=== PATIENT | male | born 1940 | race Caucasian/White ===

== ENCOUNTER 2016-05-28 15:35 | Emergency (ER) | payer OTHER ==
[~2016-05-28] VITALS: Ht 172.7 cm; Wt 77.0 kg
[2016-05-28 15:40] VITALS: Ht 172.7 cm; Wt 77.0 kg
[2016-05-28] MEDS ORDERED: LEVO100T82 PO (15:58)
[2016-05-28] MEDS ORDERED: NAPR-688 PO (15:58)
[2016-05-28] MEDS ORDERED: MEVA40 PO (15:58)
[2016-05-28 16:08] LABS: BASOPHILS % 0.5 % (0.0-2.0); EOSINOPHILS % 0.2 % (0.0-7.0); HEMATOCRIT 44.4 % (42.0-52.0); LYMPHOCYTES # 1.7 10^3/ul (0.8-2.9); LYMPHOCYTES % 16.9 % (15.0-51.0); MEAN CORPUSCULAR HEMOGLOBIN 32.1 pg (29.0-33.0); MEAN CORPUSCULAR HGB CONC 33.8 g/dl (32.0-37.0); MEAN CORPUSCULAR VOLUME 94.9 fl (82.0-101.0); MEAN PLATELET VOLUME 8.1 fl (7.4-10.4); MONOCYTE # 0.7 10^3/ul (0.3-0.9); MONOCYTES % 7.4 % (0.0-11.0); NEUTROPHIL # 7.5 10^3/ul (1.6-7.5); PLATELET COUNT 232 10^3/UL (140-440); RED BLOOD COUNT 4.67 10^6/ul (4.70-6.10); RED CELL DISTRIBUTION WIDTH 12.7 % (11.5-14.5)
[2016-05-28 16:10] LABS: CONDITION 1
[2016-05-28 16:19] LABS: CHLORIDE 104 mmol/L (97-110); POTASSIUM 4.4 mmol/L (3.5-5.1); SODIUM 142 mmol/L (135-144)
--- NOTE | 2016-05-28 16:19 | RADRPT ---
PROCEDURE: CT Brain without. CLINICAL INDICATION: Stroke. Right-sided weakness. TECHNIQUE: A CT of the brain was performed on multidetector high-resolution CT scanner utilizing a xial sections from the skull base through the vertex without contrast. The scan was reviewed in sof t tissue brain and high frequency resolution bone algorithm windows. Images were reviewed on a high -resolution PACS workstation. One or more the following does reduction techniques were utilized: Aut omated exposure control, adjustment of the mA/ or kV according to patient's size, or use of iterativ e reconstruction technique. The exam CTDI = 54.84 mGy and the DLP = 720.23 mGy-cm. COMPARISON: None available. FINDINGS: The ventricles and sulci are mildly to moderately prominent indicative of volume loss. There is no i ntracranial hemorrhage, mass effect or midline shift. No abnormal intra-axial or extra-axial fluid collections are seen. The thomas/white matter differentiation is preserved. There are moderate scattered foci of hypoattenuation in the periventricular, deep, and subcortical w chidi matter, which are nonspecific in etiology but likely reflect chronic small vessel ischemic segundo ges. Small old infarct is noted in the right lentiform nucleus. There are mild intracranial vascula r calcifications consistent with atherosclerosis. The visualized paranasal sinuses demonstrate focal opacification of posterior left ethmoid air cells. The mastoid air cells are essentially clear. Th ere is thinning of right lens indicative of prior lens replacement. IMPRESSION: 1. No acute intracranial hemorrhage, transcortical infarction or mass effect. Please note MRI is mo re sensitive for detection of acute ischemia and can be obtained as clinically warranted. 2. Mild intracranial atherosclerosis and moderate chronic small vessel ischemic changes, superimpos ed acute infarct cannot be excluded. 3. Small old infarct is noted in the right lentiform nucleus. 4. Mild to moderate generalized cerebral volume loss. Critical result: A call report was made and above findings were discussed and acknowledged by Dr. Jay melgar on 05/28/2016 at 4:12 PM. RPTAT: HH .Jose Jacobs MD, MD Date Time Electronically viewed and signed by .Jose Jacobs MD, MD on 05/28/2016 16:18 .N/
[2016-05-28 16:21] LABS: INR 0.95; PARTIAL THROMBOPLASTIN TIME 24.5 Sec (25.0-35.0); PROTIME 12.7 Sec (12.2-14.2)
[2016-05-28 16:22] LABS: ANION GAP 18 (8-16); BLOOD UREA NITROGEN 27 mg/dl (7-20); CARBON DIOXIDE 24 mmol/L (21-31); CREATININE 0.94 mg/dl (0.61-1.24); GLUCOSE 103 mg/dl (70-220)
[2016-05-28 16:23] LABS: CALCIUM 9.3 mg/dl (8.4-10.2)
[2016-05-28] MEDS ORDERED: SOD CHLORIDE 0.9% 50 ML IV ONE (16:30)
[2016-05-28] MEDS ORDERED: ALTEPLASE 100 MG INJ IV* ONE (16:30)
[2016-05-28] MEDS ORDERED: ALTEPLASE (tPA) 1 MG/ML BOLUS SYG IV* ONE (16:30)
[2016-05-28 16:36] LABS: TROPONIN-I < 0.010 ng/ml (0.00-0.12)
--- NOTE | 2016-05-28 16:39 | RADRPT ---
PROCEDURE: XR Chest 1 View. CLINICAL INDICATION: Abnormal breath sounds, code stroke. TECHNIQUE: AP view of the chest were obtained. COMPARISON: None. FINDINGS: The heart size is within normal limits. Calcified atherosclerosis is noted in the aorta. The lungs are hypoinflated. Elevation right hemidiaphragm is identified. No consolidations are identified. N o pneumothorax is seen. Osseous structures are intact. IMPRESSION: Calcified atherosclerosis in the aorta. Hypoinflated lungs with mild elevation right hemidiaphragm. Clear lungs. RPTAT: AA .Braden Aaron MD, MD Date Time Electronically viewed and signed by .Braden Aaron MD, on 05/28/2016 16:39 .P/
[2016-05-28] MEDS ORDERED: SOD CHLORIDE 0.9% 100 ML ONE (16:55)
[2016-05-28] MEDS ORDERED: IOHEXOL 100 ML ONE (16:55)
[2016-05-28] MEDS ORDERED: IOHEXOL 350MG/ML 50 ML BTL ONE (16:58)
--- NOTE | 2016-05-28 17:00 | STROKE ---
Date/Time of Note Date/Time of Note DATE: 05/28/16 TIME: 16:51 Patient Information General Patient location: emergency Arrival Date Onset Date: May 28, 2016 Onset Time: 14:45 Age 76 Gender male Weight 77 kg Vital Signs Vital Signs Vital Signs Date Time Temp Pulse Resp B/P Pulse Ox O2 Delivery O2 Flow Rate FiO2 05/28/16 15:45 Nasal Cannula 2 05/28/16 15:40 98.4 75 20 134/73 98 Patient History Current Medications Allergies: Coded Allergies: No Known Allergy (Unverified , 05/28/16) Labs Hematology Labs Hematology Test 05/28/16 16:00 Basophils # 0.010^3/ul (0.0-0.1) Basophils % 0.5% (0.0-2.0) Eosinophils # 0.010^3/ul (0.0-0.5) Eosinophils % 0.2% (0.0-7.0) Hematocrit 44.4% (42.0-52.0) Hemoglobin 15.0g/dl (14.0-18.0) Lymphocytes # 1.710^3/ul (0.8-2.9) Lymphocytes % 16.9% (15.0-51.0) Mean Corpuscular Hemoglobin 32.1pg (29.0-33.0) Mean Corpuscular Hemoglobin Concent 33.8g/dl (32.0-37.0) Mean Corpuscular Volume 94.9fl (82.0-101.0) Mean Platelet Volume 8.1fl (7.4-10.4) Monocytes # 0.710^3/ul (0.3-0.9) Monocytes % 7.4% (0.0-11.0) Neutrophils # 7.510^3/ul (1.6-7.5) Neutrophils % 75.0% (39.0-77.0) Nucleated Red Blood Cells # 0.010^3/ul (0.0-0.0) Nucleated Red Blood Cells % 0.0/100WBC (0.0-0.0) Platelet Count 91531^3/UL (140-440) Red Blood Count 4.6710^6/ul (4.70-6.10) Red Cell Distribution Width 12.7% (11.5-14.5) White Blood Count 10.010^3/ul (4.8-10.8) Chemistry Labs Chemistry Test 05/28/16 16:00 Anion Gap 18 (8-16) Blood Urea Nitrogen 27mg/dl (7-20) Calcium Level 9.3mg/dl (8.4-10.2) Carbon Dioxide Level 24mmol/L (21-31) Chloride Level 104mmol/L (97-110) Creatinine 0.94mg/dl (0.61-1.24) Glucose Level 103mg/dl (70-220) Hemoglobin A1c 5.3% (0-5.9) Potassium Level 4.4mmol/L (3.5-5.1) Sodium Level 142mmol/L (135-144) Troponin I < 0.010ng/ml (0.00-0.12) Coagulation Labs: Coagulation Test 05/28/16 16:00 Activated Partial Thromboplast Time 24.5Sec (25.0-35.0) INR International Normalized Ratio 0.95 Prothrombin Time 12.7Sec (12.2-14.2) Prothrombin Time Ratio 1.0 History & Physical Patient History Notes Pt Hx Reviewed History of Present Illness 76yo M presents with sudden onset confusion since 2:45pm. Patient was apparently feeling sick while at a movie theater, then drove home but felt confused. When he arrived home, his found patient to be very confused. Review of Systems All Other Systems: Reviewed and Negative (patient unable to provide) NIH Stroke Scale NIH Stroke Scale 1A - Level of Conciousness: 0 - Alert keenly [id number] LOC Questions: 2 - Answers no [id number] - LOC Commands: 2 - Performs neither task2 - Best Gaze: 0 - Normal3 - Visual: 0 - No visual loss4 - Facial Palsy: 0 - No visual loss 5A - Motor Arm - Left: 2 - Some effort to [id number] - Motor Arm - Right: 2 - Some effort to [id number] - Motor Leg - Left: 2 - Some effort to [id number] - Motor Leg - Right: 2 - Some effort to gravity7 - Limb Ataxia: 0 - Absent8 - Sensory: 0 - Normal9 - Best Language: 3 - Mute or global aphasiaDysarthria: 2 - [id number] - Extinction and inattentio: 0 - No abnormalityTotal Score: 17 Date/Time Recorded DATE: 05/28/16 TIME: 16:51 Submitted By Marcus Tejada t-PA Imaging Review Imaging Reviewed: Yes Date/Time Imaging Reviewed DATE: 05/28/16 TIME: 16:51 Imaging Findings No acute changes t-PA Administration Recommendation: Yes Weight 77 kg Recommedation submitted by Marcus Tejada Recommendations Impression Diagnosis acute ischemic stroke of the left middle cerebral artery Recommendation 76yo M presents with acute onset confusion. Neurological exam is notable for patient being mute, unable to answer questions, or follow commands. I believe patient is having an acute ischemic stroke of the left middle cerebral artery. I initially recommended IV TPA to be administered on an emergency basis. I later was able to speak to his and she agreed with my recommendation for IV TPA. I also recommend stat CTA of the head and neck to determine if the patient is a neurointerventional candidate. I recommend post-TPA orders be followed. Further workup is pending the results of these tests. Post t-PA Order recommendation: Document q15 min vitals Document q15 min neuro checks Document q15 min bleeding checks Refer to t-PA Order Sets Diagnostic Labs: Lipid Proile Hgb A1C CMP CBC w/Diff Coags Therapy: Physical Therapy Speech Therapy Occupational Therapy Misc. Recommendations: Bedside Swallow Evaluation Pnumatic Compression Devices Avoid [place] Catheter Stroke Education Smoking Education MARCUS TEJADA May 28, 2016 17:00
[2016-05-28] MEDS ORDERED: ONDANSETRON 4 MG INJ IV STA (17:20)
--- NOTE | 2016-05-28 17:32 | RADRPT ---
PROCEDURE: CT angiogram brain and neck CLINICAL INDICATION: Code stroke, right-sided weakness TECHNIQUE: CT angiogram of the brain, and neck was performed on a multidetector CT scanner. The nicole dy was reviewed on a [employer] PACS/3D workstation with 3D-MIP reformations. 100 cc Omnipaque 350 intravenous contrast were administered. One or more of the following dose reduction techniques were used: Automated exposure control, adjustment in mA and / or kV according to patient size, use of it erative reconstructive technique. CTDIvol = 25.7/22.4 mGy and DLP = 12.9/889.9 mGy-cm. COMPARISON: CT brain 05/28/2016 FINDINGS: CT ANGIOGRAM NECK: The origin of the great vessels arising off of the aortic arch are patent. The b ilateral common carotid arteries are patent. The bilateral carotid bulbs - bifurcations and interna l carotid arteries are patent. There is mild calcified plaque at the left carotid bulb. The bilate ral vertebral arteries are patent. Noted is tortuosity of the proximal left common carotid artery, distal left internal carotid artery, and vertebral arteries. No dissection is identified. CT ANGIOGRAM BRAIN: There is calcified plaque at the supraclinoid internal carotid artery without oc clusion or significant stenosis. The left internal carotid arteries, pain with minimal calcified pl aque at the cavernous segment. The bilateral middle cerebral arteries appear patent. The bilateral anterior cerebral arteries are patent. The bilateral posterior cerebral arteries are patent with p redominant origins. The bilateral vertebral arteries and basilar artery are diminutive but pa tent. The anterior communicating artery is visualized. No aneurysm or arteriovenous malformation i s identified. IMPRESSION: 1. No intracranial arterial occlusion or significant stenosis identified. 2. Patent cervical arteries. 3. Mild atherosclerotic disease, described above. Results called to Dr. DANIELS at 05:30 p.m., 05/28/2016. RPTAT: VV .Ken Carpenter MD, Date Time Electronically viewed and signed by .Ken Carpenter MD, on 05/28/2016 17:32 .O/
--- NOTE | 2016-05-28 17:40 | RADRPT ---
PROCEDURE: CT angiogram brain and neck CLINICAL INDICATION: Code stroke, right-sided weakness TECHNIQUE: CT angiogram of the brain, and neck was performed on a multidetector CT scanner. The stud y was reviewed on a [employer] PACS/3D workstation with 3D-MIP reformations. 100 cc Omnipaque 350 in travenous contrast were administered. One or more of the following dose reduction techniques were us ed: Automated exposure control, adjustment in mA and / or kV according to patient size, use of itera tive reconstructive technique. CTDIvol = 25.7/22.4 mGy and DLP = 12.9/889.9 mGy-cm. COMPARISON: CT brain 05/28/2016 FINDINGS: CT ANGIOGRAM NECK: The origin of the great vessels arising off of the aortic arch are patent. The bi lateral common carotid arteries are patent. The bilateral carotid bulbs - bifurcations and internal carotid arteries are patent. There is mild calcified plaque at the left carotid bulb. The bilateral vertebral arteries are patent. Noted is tortuosity of the proximal left common carotid artery, dista l left internal carotid artery, and vertebral arteries. No dissection is identified. CT ANGIOGRAM BRAIN: There is calcified plaque at the supraclinoid internal carotid artery without oc clusion or significant stenosis. The left internal carotid arteries, pain with minimal calcified rosario que at the cavernous segment. The bilateral middle cerebral arteries appear patent. The bilateral an terior cerebral arteries are patent. The bilateral posterior cerebral arteries are patent with predo minant origins. The bilateral vertebral arteries and basilar artery are diminutive but patent. The anterior communicating artery is visualized. No aneurysm or arteriovenous malformation is ident ified. IMPRESSION: 1. No intracranial arterial occlusion or significant stenosis identified. 2. Patent cervical arteries. 3. Mild atherosclerotic disease, described above. Results called to Dr. DANIELS at 05:30 p.m., 05/28/2016. RPTAT: VV .Ken Carpenter MD, Date Time Electronically viewed and signed by .Ken Carpenter MD, MD on 05/28/2016 17:40 .O/
--- NOTE | 2016-05-28 17:53 | ERA ---
ER Documentation Chief Complaint Date/Time DATE: 05/28/16 TIME: 17:45 Chief Complaint RIGHT SIDED FACIAL DROOP AND GENERALIZED WEAKNESS STARTED AT 1415 HPI This is a 76-year-old male who presents to the emergency room after being brought in by ambulance for altered mental status. According to EMS and prehospital history this patient was at a movie theater around 2:30 PM and stated he was feeling sick. The patient got into his car and was driving home and told his that he was confused and could not find the house. When he was eventually able to get home his called 911. According to EMS this patient had slurred speech, and was weak on the right side with a mild right- sided facial droop. When I evaluated this patient I was unable to obtain a history secondary to his clinical condition. The patient was completely a phasic, and was unable to follow commands thoroughly. A code stroke was called immediately as this patient was in the timeframe to receive TPA ROS All systems reviewed and are negative except as per history of present illness. Medications Home Meds Reported Medications Levothyroxine Sodium* (Levoxyl*) 100 Mcg Tablet, 100 MCG PO BEFORE BREAKFAST, # 30 TAB 05/28/16 Lovastatin (Lovastatin) 40 Mg Tablet, 40 MG PO HS, TAB 05/28/16 Naproxen* (Naproxen*) 500 Mg Tablet, 500 MG PO BID Y for PAIN AND/OR INFLAMMATION, TAB 05/28/16 Allergies Allergies: Coded Allergies: No Known Allergy (Unverified , 05/28/16) PMhx/Soc History of Surgery: No Anesthesia Reaction: No Hx Neurological Disorder: No Hx Respiratory Disorders: No Hx Cardiac Disorders: Yes (HIGH CHOLESTEROL) Hx Psychiatric Problems: No Hx Miscellaneous Medical Probl: Yes (HYPOTHYROIDISM) Hx Alcohol Use: Yes (2 GLASSES OF WINE A DAY) Hx Substance Use: No Hx Tobacco Use: No Smoking Status: Never smoker Physical Exam Vitals Vital Signs Date Time Temp Pulse Resp B/P Pulse Ox O2 Delivery O2 Flow Rate FiO2 05/28/16 17:30 91 20 151/73 100 05/28/16 17:15 91 20 113/91 99 05/28/16 17:00 99 20 148/73 99 05/28/16 16:50 86 20 145/73 99 05/28/16 16:35 86 20 135/64 99 05/28/16 16:33 83 20 136/62 99 05/28/16 15:45 Nasal Cannula 2 05/28/16 15:40 98.4 75 20 134/73 98 Physical Exam INITIAL VITAL SIGNS: Reviewed by me GENERAL: The patient is well developed and appropriate for usual state of health in no apparent distress HEENT: Pupils equal, round, and reactive to light. EOMI. There is no scleral icterus. NECK: Mild right sided facial droop, C-spine is soft and supple, there is no meningismus. There is no cervical lymphadenopathy. LUNGS: Clear to auscultation bilaterally. There are no rales, wheezes or rhonchi. HEART: Regular rate and rhythm, no murmurs, clicks, rubs or gallops. ABDOMEN: Soft, non-tender, non-distended. There are bowel sounds in all four quadrants. No rebound or guarding. EXTREMITIES: There is no peripheral cyanosis or edema. No focal swelling or erythema. NEUROLOGICAL: Patient is a phasic, left manager mechanical strength is 4 out of 5, right manager mechanical strength is 2 out of 5, unable to assess strength in the lower extremities as patient is noncompliant. Patient is unable to track my finger visually, has no grimace, SKIN: There is no apparent rash or petechiae. HEME/LYMPHATIC: There is no evidence of excessive bruising or lymphedema. PSYCHIATRIC: The patient does not appear anxious or depressed. Result Diagram: 05/28/16 1600 05/28/16 1600 Results 24 hrs Laboratory Tests Test 05/28/16 16:00 Activated Partial Thromboplast Time 24.5Sec Anion Gap 18 Basophils # 0.010^3/ul Basophils % 0.5% Blood Urea Nitrogen 27mg/dl Calcium Level 9.3mg/dl Carbon Dioxide Level 24mmol/L Chloride Level 104mmol/L Creatinine 0.94mg/dl Eosinophils # 0.010^3/ul Eosinophils % 0.2% Glucose Level 103mg/dl Hematocrit 44.4% Hemoglobin 15.0g/dl Hemoglobin A1c 5.3% INR International Normalized Ratio 0.95 Lymphocytes # 1.710^3/ul Lymphocytes % 16.9% Mean Corpuscular Hemoglobin 32.1pg Mean Corpuscular Hemoglobin Concent 33.8g/dl Mean Corpuscular Volume 94.9fl Mean Platelet Volume 8.1fl Monocytes # 0.710^3/ul Monocytes % 7.4% Neutrophils # 7.510^3/ul Neutrophils % 75.0% Nucleated Red Blood Cells # 0.010^3/ul Nucleated Red Blood Cells % 0.0/100WBC Platelet Count 33405^3/UL Potassium Level 4.4mmol/L Prothrombin Time 12.7Sec Prothrombin Time Ratio 1.0 Red Blood Count 4.6710^6/ul Red Cell Distribution Width 12.7% Sodium Level 142mmol/L Troponin I < 0.010ng/ml White Blood Count 10.010^3/ul Current Medications Medications (Trade) Dose Ordered Sig/Micaela Route PRN Reason Start Time Stop Time Status Last Admin Dose Admin Alteplase, Recombinant (Activase) 6.9 mg BOLUS OVER 1 MIN ONCE IV* 05/28/16 16:30 05/28/16 16:31 DC Alteplase, Recombinant 62.4 mg 62.4 mg ISCHEMIC STROKE ONCE IV* 05/28/16 16:30 05/28/16 16:31 DC Sodium Chloride (NS) 50 ml @ 0 mls/hr FLUSH AFTER TPA ONCE IV 05/28/16 16:30 05/28/16 16:31 DC IV Flush 10 ml 10 ml STK-MED ONCE .ROUTE 05/28/16 16:55 05/28/16 16:56 DC 05/28/16 17:15 Sodium Chloride 100 ml @ ud STK-MED ONCE .ROUTE 05/28/16 16:55 05/28/16 16:56 DC 05/28/16 17:15 Iohexol (Omnipaque) 100 ml @ ud STK-MED ONCE .ROUTE 05/28/16 16:55 05/28/16 16:56 DC 05/28/16 17:15 Iohexol (Omnipaque 350mg/ ml) 50 ml STK-MED ONCE .ROUTE 05/28/16 16:58 05/28/16 16:59 DC Ondansetron HCl (Zofran Inj) 4 mg ONCE STAT IV 05/28/16 17:20 05/28/16 17:21 DC Procedures/MDM EKG: Rate/Rhythm: [Normal Sinus Rhythm] QRS, ST, T-waves: [No changes consistent w/ acute ischemia] Impression: [No evidence of ischemia or arrhythmia] Chest X-ray 1V Interpreted by me: Soft Tissue: No acute abnormalities Bones: No acute abnormalities Mediastinum/Cardiac Silhouette/Lungs: [No acute abnormalities] CT head without : 1. No acute intracranial hemorrhage, transcortical infarction or mass effect. Please note MRI is more sensitive for detection of acute ischemia and can be obtained as clinically warranted. 2. Mild intracranial atherosclerosis and moderate chronic small vessel ischemic changes, superimposed acute infarct cannot be excluded. 3. Small old infarct is noted in the right lentiform nucleus. 4. Mild to moderate generalized cerebral volume loss. This 76-year-old male presents to the emergency room for altered mental status. This patient entered the emergency room and I immediately called a code stroke. This patient was evaluated by tele-neurologist, Dr. Rendon who agrees that this patient is a candidate for TPA. As we were getting the medication ready to administer this patient's entered the emergency room. I did speak to her about her 's condition, she is aware. She did have questions about TPA which were answered by myself and Dr. Rendon. After all the questions were answered this patient's agreed to administer TPA. TPA was given, and this patient was taken to CT angiogram. I did call [facility] and spoke to Dr. Hickman for transfer. This patient was accepted by Dr. Hickman. This patient will be transferred to [facility] at this time for further evaluation and possible intervention. The patient's family is aware, they are agreement with her plan of care. This patient will be transferred at this time. Patient is hemodynamically stable, no seizure activity or signs of mucosal bleeding after TPA bolus and infusion. Critical Care: Excluding all billable procedures Time: 48 minutes Treatments/Evaluations: Close monitoring and treatment of unstable vital signs, cardiorespiratory, and neurologic status, while maintaining tight balance of fluid, respiratory, and cardiac interventions, multiple consultations , multiple bedside evaluations, laboratory interpretation, coordination of nursing care. Departure Diagnosis: Primary Impression: Acute CVA (cerebrovascular accident) Additional Impression: Altered mental status Condition: Critical EPHRAIM DANIELS DO May 28, 2016 17:53
== END 2016-05-28 19:41 | disposition short-term general hospital (02) ==
LOC: E/R 15:35
DX: I63.9 Cerebral infarction, unspecified (principal); E03.9 Hypothyroidism, unspecified; R41.82 Altered mental status, unspecified; R53.1 Weakness
CPT/HCPCS: 37195; 70450; 70496; 70498; 71010; 80048; 83036; 84484; 85025; 85610; 85730; 93005; J2405; J2997; Q9967; 36415; 96374